=== PATIENT | male | born 1970 | race Caucasian/White ===

== ENCOUNTER 2017-02-20 16:59 | Emergency (ER) | payer OTHER ==
[~2017-02-20] VITALS: Ht 177.8 cm; Wt 127.0 kg
[~2017-02-20 16:59] MED LIST: BACLOFEN10 MG PO; BUSPIRONE HCL5 MG PO; IBUPROFEN600 MG PO; ZANTAC150 MG PO
[2017-02-20] MEDS ORDERED: CLONIDINE HCL0.1 MG PO (17:23)
[2017-02-20] MEDS ORDERED: OMEPRAZOLE20 M1 PO (17:23)
[2017-02-20] MEDS ORDERED: VITAMIN B-12100 MCG PO (17:24)
== END 2017-02-20 17:40 | disposition home or self-care (01) ==
LOC: ED 16:59
DX: L53.9 Erythematous condition, unspecified (principal); I51.7 Cardiomegaly; F41.9 Anxiety disorder, unspecified; Z88.2 Allergy status to sulfonamides
CPT/HCPCS: 96374; 99282; J1200

== ENCOUNTER 2017-12-04 19:33 | Emergency (ER) | payer OTHER ==
[~2017-12-04] VITALS: Ht 177.8 cm; Wt 127.0 kg
[~2017-12-04 19:33] MED LIST changes: +CLONIDINE HCL0.1 MG PO; +OMEPRAZOLE20 M1 PO; +VITAMIN B-12100 MCG PO
--- NOTE | 2017-12-05 15:57 | EKG ---
[facility] [address] [facility] [place] [address] Signed Normal sinus rhythm Normal ECG No previous ECGs available Confirmed by PATRIZIA OSBORNE MD ([id number]) on 12/05/2017 3:57:06 PM Electronically Signed By: PATRIZIA OSBORNE MD 12/05/17 1557 PATIENT NAME: KEN YARBROUGH Electrocardiogram DATE OF : [birth year] PHYSICIAN: PATRIZIA OSBORNE MD REPORT #: [id number] REPORT IS CONFIDENTIAL AND NOT TO BE RELEASED WITHOUT AUTHORIZATION
== END 2017-12-04 21:06 | disposition home or self-care (01) ==
LOC: ED 19:33
DX: J18.9 Pneumonia, unspecified organism (principal); Z88.2 Allergy status to sulfonamides; Z91.030 Bee allergy status; Z91.038 Other insect allergy status; Z79.899 Other long term (current) drug therapy
CPT/HCPCS: 71045; 80053; 84484; 85025; 85379; 93005; 93010; 96374; 99284; J1885

== ENCOUNTER 2017-12-07 11:07 | Emergency (ER) | payer OTHER ==
[~2017-12-07] VITALS: Ht 177.8 cm; Wt 122.5 kg
[2017-12-07] MEDS ORDERED: HYDROCODON-ACE1 EA14 PO (13:03)
[2017-12-07] MEDS ORDERED: ZITHROMAX250 MG PO (13:03)
== END 2017-12-07 13:21 | disposition home or self-care (01) ==
LOC: ED 11:07
DX: J18.9 Pneumonia, unspecified organism (principal); F41.9 Anxiety disorder, unspecified; Z88.2 Allergy status to sulfonamides; Z91.038 Other insect allergy status; Z91.030 Bee allergy status; Z79.899 Other long term (current) drug therapy
CPT/HCPCS: 71046; 99282

== ENCOUNTER 2019-08-15 15:14 | Emergency (ER) | payer OTHER ==
[~2019-08-15] VITALS: Ht 177.8 cm; Wt 131.5 kg
[~2019-08-15 15:14] MED LIST changes: +HYDROCODON-ACE1 EA14 PO; +ZITHROMAX250 MG PO
--- NOTE | 2019-08-15 23:42 | EKG ---
[facility] [address] [facility] [place], [place] [address] Signed Normal sinus rhythm Normal ECG When compared with ECG of 04-DEC-2017 19:38, No significant change was found Confirmed by NICKY YAO MD ([id number]) on 08/15/2019 11:42:26 PM Electronically Signed By: NICKY YAO MD 08/15/19 2342 PATIENT NAME: KEN YARBROUGH LANCE Electrocardiogram DATE OF : [birth year] PHYSICIAN: NICKY YAO MD REPORT #: [id number] REPORT IS CONFIDENTIAL AND NOT TO BE RELEASED WITHOUT AUTHORIZATION
== END 2019-08-15 17:51 | disposition home or self-care (01) ==
LOC: ED 15:14
DX: R07.89 Other chest pain (principal); F43.10 Post-traumatic stress disorder, unspecified; F41.9 Anxiety disorder, unspecified; F17.200 Nicotine dependence, unspecified, uncomplicated; Z88.2 Allergy status to sulfonamides; Z91.030 Bee allergy status; Z79.899 Other long term (current) drug therapy
CPT/HCPCS: 71046; 80053; 83735; 84484; 85025; 85379; 93005; 93010; 99285-25; 99406

== ENCOUNTER 2020-04-18 19:33 | Emergency (ER) | payer OTHER ==
[~2020-04-18] VITALS: Ht 157.5 cm; Wt 136.5 kg
[2020-04-18] MEDS ORDERED: BUSPIRONE HCL5 MG PO (20:35)
[2020-04-18] MEDS ORDERED: ZOFRAN4 MG PO (22:12)
--- NOTE | 2020-04-18 22:43 | EKG ---
[facility] [address] [place], [place] [address] Signed Sinus tachycardia Otherwise normal ECG When compared with ECG of 15-AUG-2019 15:20, No significant change was found Confirmed by PATRIZIA OSBORNE MD ([id number]) on 04/18/2020 10:43:22 PM Electronically Signed By: PATRIZIA OSBORNE MD 04/18/20 2243 PATIENT NAME: KEN YARBROUGH LANCE Electrocardiogram DATE OF : [birth year] PHYSICIAN: PATRIZIA OSBORNE MD REPORT #: [id number] REPORT IS CONFIDENTIAL AND NOT TO BE RELEASED WITHOUT AUTHORIZATION
--- NOTE | 2020-04-19 17:40 | PATH ---
[facility] [address] [place], [place] [address] Signed ORDERING PHYSICIAN: Luisa Harris MD PATIENT NAME: KEN YARBROUGH GENDER: M : 1970 SPECIMEN(S): No Source Given MOLECULAR PATHOLOGY RESULTS: SARS-CoV-2 Not Detected ADDITIONAL NOTES.: The Accord Fusion SARS-CoV-2 Assay is a multiplex real-time PCR (RT-PCR) in vitro diagnostic test intended for the qualitative detection of RNA from SARS-CoV-2 from individuals who meet COVID-19 clinical and/or epidemiological criteria. In general, SARS-CoV-2 RNA can be detected during the acute phase of infection. Positive results indicate the presence of SARS-CoV-2 RNA. Clinical correlation with patient history and other diagnostic information is necessary to determine patient infection status. Positive results do not rule out bacterial infection or co-infection with other viruses. Negative results do not preclude SARS-CoV-2 infection and should not be used as the sole basis for patient management decisions. Negative results must be combined with other clinical observations, patient history, and epidemiological information. The Accord Fusion SARS-CoV-2 Assay is not yet approved or cleared by the [place] FDA. When there are no FDA-approved or cleared tests available, and other criteria are met, FDA can make tests available under an emergency access mechanism called an Emergency Use Authorization (EUA). The EUA for this test is supported by the [place] of Health and Human Service's (HHS's) declaration that circumstances exist to justify the emergency use of in vitro diagnostics for the detection and/or diagnosis of the virus that causes COVID-19. This EUA will remain in effect for the duration of the COVID-19 declaration justifying emergency of IVDs, unless it is terminated or revoked by FDA, after which the test may no longer be used. The Accord Fusion SARS-CoV-2 Assay is for use only under EUA in US laboratories certified under the Clinical Laboratory Improvement Amendments of 1988 (CLIA) to perform high complexity tests. [facility] is certified under CLIA to perform high complexity PATIENT NAME: KEN YARBROUGH PATHOLOGY DATE OF : [birth year] REPORT #: [id number] PHYSICIAN: ANN-MARIE CRAFT PCP: OTHER PCP REPORT IS CONFIDENTIAL AND NOT TO BE RELEASED WITHOUT AUTHORIZATION [address] [address] Signed clinical laboratory testing. PERFORMING LABORATORY.: Molecular testing was performed by [facility] [address] [place], [place] [address] [address] (Maintenance Analyst: Cornel Gonzalez D.O.; CLIA#: [id number]) Diagnostician: System Interface Pathologist Electronically Signed 04/19/2020 Copies: ~ PATIENT NAME: KEN YARBROUGH PATHOLOGY DATE OF : [birth year] REPORT #: [id number] PHYSICIAN: ANN-MARIE CRAFT PCP: OTHER PCP REPORT IS CONFIDENTIAL AND NOT TO BE RELEASED WITHOUT AUTHORIZATION
== END 2020-04-18 22:46 | disposition home or self-care (01) ==
LOC: ED 19:33
DX: A08.4 Viral intestinal infection, unspecified (principal); Z20.828 Contact with and (suspected) exposure to other viral communicable diseases; F41.9 Anxiety disorder, unspecified; Z88.2 Allergy status to sulfonamides; Z91.030 Bee allergy status; Z79.899 Other long term (current) drug therapy
CPT/HCPCS: 71045; 80053; 81001; 83605; 85025; 93005; 93010; 96361; 96374; 99284-25; C9803; J2405; J7030

== ENCOUNTER 2020-07-08 09:48 | Emergency (ER) | payer OTHER ==
[~2020-07-08] VITALS: Ht 157.5 cm; Wt 136.5 kg
[~2020-07-08 09:48] MED LIST changes: +ZOFRAN4 MG PO
== END 2020-07-08 10:55 | disposition home or self-care (01) ==
LOC: ED 09:48
DX: M75.101 Unspecified rotator cuff tear or rupture of right shoulder, not specified as traumatic (principal); F43.10 Post-traumatic stress disorder, unspecified; F41.9 Anxiety disorder, unspecified; F17.200 Nicotine dependence, unspecified, uncomplicated; Z88.2 Allergy status to sulfonamides; Z91.030 Bee allergy status; Z79.899 Other long term (current) drug therapy
CPT/HCPCS: 73030; 99283-25

== ENCOUNTER 2020-11-22 06:10 | Day surgery (SDC) | payer OTHER ==
[~2020-11-22] VITALS: Ht 177.8 cm; Wt 131.8 kg
[2020-11-22] MEDS ORDERED: HYDROCODON-ACE1 EA10 PO (09:13)
[2020-11-22] MEDS ORDERED: DICLOFENAC SODI75 MG PO (09:13)
--- NOTE | 2020-11-22 09:20 | NUR ---
11/22/20 0920 Yelitza Paulino 09 PT. NEEDS AIRWAY SUPPORT, RN CHIN LIFT. PT. NONRESPONSIVE
--- NOTE | 2020-11-22 09:56 | NUR ---
PT ALERT, ORIENTED AND SUPPORTED BY HIS FRIEND JEROMY. PT ANSWEREDS WITH MOSTLY YES/NO ANSWERS. SEEMS CONFIDENT, ALL QUESTIONS ASKED ANSWERED. PT REQUESTED PRAYER. WILL FOLLOW NEEDED
--- NOTE | 2020-11-22 10:33 | NUR ---
LE 1017: PT ARRIVES TO UNIT VIA STRETCHER FROM PACU. BEDSIDE REPORT RECEIVED AND CARE ASSUMED BY THIS RN. PT DROWSY BUT RESPONDS TO VERBAL STIMULUS. VSS, CMS WNL. CRYO CUFF AND SCDS IN PLACE. PT DENIES NAUSEA, LOLA PO WELL. DRESSING C/D/I. REMAINS ON 2L NC VIA BIPAP. SON ATTENTIVE AT THE BEDSIDE. NO NEEDS VOICED AT THIS TIME. CALL LIGHT WITHIN REACH
--- NOTE | 2020-11-22 11:11 | OR ---
[facility] [address] [place], [place] [address] Signed DATE OF OPERATION: 11/22/2020 SURGEON: Siri Rizzo MD PREOPERATIVE DIAGNOSIS: Labral tear, right shoulder. POSTOPERATIVE DIAGNOSIS: Labral tear, right shoulder. PROCEDURE PERFORMED: Right shoulder arthroscopy with labral repair. OXYGEN THERAPIST: None. ANESTHESIA: General. BLOOD LOSS: Minimal. IMPLANTS: Three 1.8 FiberTak anchors were used. BRIEF HISTORY: Ken is a 50-year-old gentleman with pain in the shoulder. Nonoperative treatment was unsuccessful, improving his situation. MRI was consistent with the anterior-superior labral tear. Risks and benefits of operative treatment were discussed with him, and he elected to proceed. DESCRIPTION OF PROCEDURE: Once consent was obtained, he was taken to the operating room. After adequate anesthesia, he was placed on the operating room table in the beach chair position. All downside pressure points were well padded. The right shoulder was prepped and draped in a standard sterile fashion. Shoulder was injected with 15 mL of 0.25% Marcaine with epinephrine as was subacromial space. The standard posterior portal was made and the scope was introduced in the shoulder. ARTHROSCOPIC FINDINGS: Electronically Signed By: SIRI RIZZO MD 11/22/20 1111 PATIENT NAME: KEN YARBROUGH OPERATIVE REPORT DATE OF : [birth year] REPORT #: [id number] PHYSICIAN: SIRI RIZZO MD PCP: KAUSHIK CALLAWAY MD REPORT IS CONFIDENTIAL AND NOT TO BE RELEASED WITHOUT AUTHORIZATION [facility] [address] [facility] [place], [place] [address] Signed The shoulder showed a substantial synovitis throughout the anterior inferior aspect of the shoulder all the way around along the labrum. Not really involving the rotator cuff insertion. The biceps was intact. Glenohumeral surfaces showed grade 3 chondrosis to the inferior-anterior aspect of the glenoid on the humerus. The labrum was noted to be torn from the 4 o'clock position to about the 12 o'clock position. Some of the biceps anchor was involved. There was extensive fraying. DESCRIPTION OF OPERATION: Standard anterior and anterior superior portals were established. The glenoid rim was cleaned off using the shaver and a bur. We took it down to a good bony rim. Once this was accomplished, the labrum was mobilized anteriorly. The 1st anchor was placed at about the 3:30 position and using a device, we passed it through the labrum, brought back out the anterior superior cannula. The anchor was then threaded and tightened, and the labrum was brought up nice and tight. The 2nd anchor was placed midway and the 3rd anchor was placed just anterior to the biceps with excellent fixation. The three sutures were cut. The labrum was quite stable at the end of the procedure. The scope was withdrawn. Portals were closed with 3-0 nylon and dressed with Allevyn and OpSite. He tolerated the procedure well. All sponge, needle, and instrument counts were correct. Siri Rizzo MD BA/MODL /[id number] Copies: ~ Electronically Signed By: SIRI RIZZO MD 11/22/20 1111 PATIENT NAME: KEN YARBROUGH OPERATIVE REPORT DATE OF : [birth year] REPORT #: [id number] PHYSICIAN: SIRI RIZZO MD PCP: KAUSHIK CALLAWAY MD REPORT IS CONFIDENTIAL AND NOT TO BE RELEASED WITHOUT AUTHORIZATION
--- NOTE | 2020-11-22 11:26 | NUR ---
PT ALERT AND ORIENTED WHEN THIS RN ENTERS THE ROOM. VSS, CMS WNL. DRESSING C/D/I X3. CRYO CUFF AND SCDS REMAINS IN PLACE. CONTS TO DENY NAUSEA AND PAIN. REQUESTS TO WAIT ANOTHER HALF HOUR TO VOID. IV CONVERTED TO SL. NO NEEDS VOICED AT THIS TIME. CALL LIGHT WITHIN REACH
--- NOTE | 2020-11-22 12:08 | NUR ---
PT DANGLES AT THE BEDSIDE. DENIES DIZZINESS AND SOB. AMB TO BR WITH THIS RN STANDBY ASSIST. STEADY GAIT, LOLA WELL. SUCCESSFUL POSTOP VOID. PT BACK TO ROOM 12. DRESSES WITH ASSISTANCE. SLING ADJ. PREPARES FOR D/C
--- NOTE | 2020-11-22 12:41 | NUR ---
[facility] 1225: D/C INSTRUCTIONS PROVIDED AND DISCUSSED ORDERED. PT VOICES UNDERSTANDING AND DENIES QUESTIONS AND CONCERNS AT THIS TIME. SL D/C'D WITH CATH TIP INTACT AND PRESSURE APPLIED TO SITE. PT WHEELED OFF OF UNIT IN W/C BY THIS RN. TRANSFERS INTO VEHICLE INDEPENDENTLY. RESP EVEN AND UNLABORED. NO PHYSICAL S/S OF DISTRESS AT THIS TIME
== END 2020-11-22 12:25 | disposition home or self-care (01) ==
LOC: DS 06:10
PROVIDERS: ATTEND Specialist
PROC: 0MM14ZZ Reattachment of Right Shoulder Bursa and Ligament, Percutaneous Endoscopic Approach (ICD-10-PCS; principal; 2020-11-22 08:15)
DX: S43.431A Superior glenoid labrum lesion of right shoulder, initial encounter (principal)
CPT/HCPCS: J0330; J0690; J0735; J1100; J1885; J2001; J2250; J2405; J2704; J2765; J3010; J7121

== ENCOUNTER 2021-06-01 15:56 | Emergency (ER) | payer OTHER ==
[~2021-06-01] VITALS: Ht 177.8 cm; Wt 136.3 kg
[~2021-06-01 15:56] MED LIST changes: +DICLOFENAC SODI75 MG PO; +HYDROCODON-ACE1 EA10 PO
[2021-06-01] MEDS ORDERED: METHOCARBAMOL750 MG PO (17:10)
[2021-06-01] MEDS ORDERED: LIDODERM1 EACH TOP (17:12)
== END 2021-06-01 17:29 | disposition home or self-care (01) ==
LOC: ED 15:56
DX: M54.50 Low back pain, unspecified (principal); J45.909 Unspecified asthma, uncomplicated; F17.200 Nicotine dependence, unspecified, uncomplicated; Z88.2 Allergy status to sulfonamides; Z91.038 Other insect allergy status; Z79.899 Other long term (current) drug therapy
CPT/HCPCS: 99283; A9270

== ENCOUNTER 2022-07-20 19:25 | Emergency (ER) | payer OTHER ==
[~2022-07-20] VITALS: Ht 177.8 cm; Wt 168.0 kg
[~2022-07-20 19:25] MED LIST changes: +LIDODERM1 EACH TOP; +METHOCARBAMOL750 MG PO
--- OUTSIDE RECORDS SUMMARY | 2022-07-20 19:32 | XMS ---
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 Annette has no Care Guidelines for this patient. Care History Medical/Surgical 12/08/2017 [facility] scheduled patient next apt with PCP at the DC on 12/14/17 @ 1:00pm. - [facility] spoke with RN that was available at the DC at the PCP office and she stated she will get patient seen for a follow up visit within the next week. Care Recommendation: This patient has had 5 or more Emergency Department visits in the last 12 months. Patient requires education on the scope and purpose of the ED as an acute care provider not a Primary Care Provider and should not be utilized for chronic conditions. If patient returns to ED please contact [facility] at [phone]. These are guidelines and the provider should exercise clinical judgment when providing care E.D. VISIT COUNT (12 MO.) 1 [facility] 2 [facility]. TOTAL 3 NOTE: Visits indicate total known visits. ED/UCC VISIT TRACKING (12 MO.) 07/20/2022 19:26 [facility]I Montes TYPE: Emergency COMPLAINT: - CHEST PAIN 07/17/2022 18:41 [facility]EM[facility] [place] TYPE: Emergency COMPLAINT: - SOB 07/08/2022 13:10 [facility] TYPE: Emergency DIAGNOSES: - Chest pain, unspecified - CP - Chest Pain INPATIENT VISIT TRACKING (12 MO.) No inpatient visits to display in this time frame [email or web address]
[2022-07-20] MEDS ORDERED: PROZAC20 MG PO (19:43)
[2022-07-20] MEDS ORDERED: CARAFATE1 GM PO (22:47)
--- NOTE | 2022-07-23 19:22 | EKG ---
[facility] [address] [facility] [place] [address] Signed Normal sinus rhythm Minimal voltage criteria for LVH, may be normal variant ( R in aVL ) Borderline ECG When compared with ECG of 19-NOV-2020 11:32, No significant change was found Confirmed by PATRIZIA OSBORNE MD ([id number]) on 07/23/2022 7:22:17 PM Electronically Signed By: PATRIZIA OSBORNE MD 07/23/221921 PATIENT NAME: KEN YARBROUGH Electrocardiogram DATE OF : [birth year] PHYSICIAN: PATRIZIA OSBORNE MD REPORT #: [id number] REPORT IS CONFIDENTIAL AND NOT TO BE RELEASED WITHOUT AUTHORIZATION
--- NOTE | 2022-07-23 19:22 | EKG ---
[facility] [address] [facility] [place] [address] Signed Normal sinus rhythm Minimal voltage criteria for LVH, may be normal variant ( R in aVL ) Borderline ECG When compared with ECG of 20-JUL-2022 19:34, (Unconfirmed) No significant change was found Confirmed by PATRIZIA OSBORNE MD ([id number]) on 07/23/2022 7:22:23 PM Electronically Signed By: PATRIZIA OSBORNE MD 07/23/221921 PATIENT NAME: KEN YARBROUGH Electrocardiogram DATE OF : [birth year] PHYSICIAN: PATRIZIA OSBORNE MD REPORT #: [id number] REPORT IS CONFIDENTIAL AND NOT TO BE RELEASED WITHOUT AUTHORIZATION
== END 2022-07-20 22:54 | disposition home or self-care (01) ==
LOC: ED 19:25
DX: K21.9 Gastro-esophageal reflux disease without esophagitis (principal); I51.7 Cardiomegaly; J45.909 Unspecified asthma, uncomplicated; F17.200 Nicotine dependence, unspecified, uncomplicated; Z88.2 Allergy status to sulfonamides; Z91.030 Bee allergy status; Z79.899 Other long term (current) drug therapy
CPT/HCPCS: 36415; 71045; 80053; 83735; 84484; 85025; 85610; 93005; 93010; 96374; 99285-25; A9270

== ENCOUNTER 2023-08-17 18:39 | Emergency (ER) | payer OTHER ==
[~2023-08-17] VITALS: Ht 177.8 cm; Wt 136.0 kg
[~2023-08-17 18:39] MED LIST changes: +CARAFATE1 GM PO; +PROZAC20 MG PO
[2023-08-17 19:18] LABS: BASOPHILS 1.3 % (0-2); EOSINOPHILS 3.3 % (0-6); HEMATOCRIT 43.4 % (35.0-50.0); HEMOGLOBIN 14.7 g/dL (12.0-18.0); LYMPHOCYTES 8.3 % (24-44); MCH 28.9 (27-36); MCHC 33.8 g/dl (30-36); MCV 85.3 fl (81-99); MONOCYTES 12.3 % (0-12); NEUTROPHILS 74.8 % (39-80); PLATELET COUNT 198 K/uL (140-440); RBC 5.09 M/ul (4.3-5.7)
[2023-08-17 19:33] LABS: ALBUMIN 3.9 g/dL (3.4-5.0); ALBUMIN/GLOBULIN RATIO 1.08 (1.1-2.4); ANION GAP 12.8 (7-21); BILIRUBIN, TOTAL 0.6 ng/dL (0.2-1.0); BUN/CREATININE RATIO 8.26 (6.0-28.6); CALCIUM 8.4 mg/dL (8.5-10.1); CREATININE, SERUM 1.21 mg/dL (0.70-1.30); POTASSIUM 3.8 mmol/L (3.5-5.1); PROTEIN, TOTAL 7.5 g/dL (6.4-8.2)
[2023-08-17 19:36] LABS: LACTIC ACID, BLOOD 1.2 mmol/L (0.4-2.0)
[2023-08-17 19:54] LABS: INFLUENZA B NAA NEGATIVE (NEGATIVE); RESPIRATORY SYNCYTIAL VIR NAA NEGATIVE (NEGATIVE)
[2023-08-17] MEDS ORDERED: CYCLOBENZAPRINE10 MG PO (20:44)
[2023-08-17] MEDS ORDERED: ONDANSETRON ODT8 MG PO (20:44)
[2023-08-17 21:11] VITALS: BP 164/88
== END 2023-08-17 21:11 | disposition home or self-care (01) ==
LOC: ED 18:39
PROVIDERS: Family Medicine
DX: J10.1 Influenza due to other identified influenza virus with other respiratory manifestations (principal); F17.200 Nicotine dependence, unspecified, uncomplicated; Z91.030 Bee allergy status; Z88.2 Allergy status to sulfonamides; Z79.899 Other long term (current) drug therapy; Z11.52 Encounter for screening for COVID-19
CPT/HCPCS: 36415; 71045; 80053; 83605; 85025; 87502; A9270; C9803; J1885; J2405; J7121; U0002

== ENCOUNTER 2024-04-07 15:54 | Emergency (ER) | payer OTHER ==
[~2024-04-07] VITALS: Ht 177.8 cm; Wt 142.5 kg
[~2024-04-07 15:54] MED LIST changes: +CYCLOBENZAPRINE10 MG PO; +ONDANSETRON ODT8 MG PO
[2024-04-07] MEDS ORDERED: methylPREDNISolone SOD SUCC 125 MG/2 ML VIAL IV ONE (16:30)
[2024-04-07] MEDS ORDERED: diphenhydrAMINE HCL 50 MG/ML VIAL IV ONE (16:30)
[2024-04-07] MEDS ORDERED: KETOROLAC TROMETHAMINE 30 MG/ML VIAL IV ONE (16:30)
[2024-04-07] MEDS ORDERED: KETOROLAC TROME10 MG PO (18:33)
[2024-04-07] MEDS ORDERED: PREDNISONE20 MG PO (18:33)
[2024-04-07] MEDS ORDERED: EPIPEN 2-P0.3 MG/0.3 IM (18:33)
[2024-04-07 18:42] VITALS: BP 145/88
== END 2024-04-07 18:42 | disposition home or self-care (01) ==
LOC: ED 15:54
DX: T63.441A Toxic effect of venom of bees, accidental (unintentional), initial encounter (principal); M79.89 Other specified soft tissue disorders; J45.909 Unspecified asthma, uncomplicated; F17.200 Nicotine dependence, unspecified, uncomplicated; Z88.2 Allergy status to sulfonamides; Z91.030 Bee allergy status; Z79.899 Other long term (current) drug therapy
CPT/HCPCS: 96374; 96375; 99282-25; J1200; J1885; J2919

== ENCOUNTER 2024-10-22 11:51 | Emergency (ER) | payer OTHER ==
[~2024-10-22] VITALS: Ht 177.8 cm; Wt 143.8 kg
[~2024-10-22 11:51] MED LIST changes: +EPIPEN 2-P0.3 MG/0.3 IM; +KETOROLAC TROME10 MG PO; +PREDNISONE20 MG PO
[2024-10-22] MEDS ORDERED: ALBUTEROL/IPRATROPIUM 3 ML NEB ONE (11:54)
[2024-10-22] MEDS ORDERED: DEXAMETHASONE SOD PHOS 10 MG/ML VIAL IV ONE (12:00)
[2024-10-22] MEDS ORDERED: ALBUTEROL/IPRATROPIUM 3 ML NEB INH ONE (12:00)
[2024-10-22 12:10] LABS: BASOPHILS 0.7 % (0-2); EOSINOPHILS 5.4 % (0-6); HEMATOCRIT 43.7 % (35.0-50.0); HEMOGLOBIN 15.1 g/dL (12.0-18.0); LYMPHOCYTES 17.4 % (24-44); MCH 29.2 (27-36); MCHC 34.5 g/dl (30-36); MCV 84.6 fl (81-99); MONOCYTES 8.9 % (0-12); NEUTROPHILS 67.6 % (39-80); PLATELET COUNT 208 K/uL (140-440); RBC 5.17 M/ul (4.3-5.7); RDW 14.2 (10.5-15.0)
[2024-10-22 12:30] LABS: ALBUMIN 3.7 g/dL (3.4-5.0); ALBUMIN/GLOBULIN RATIO 1.19 (1.1-2.4); BILIRUBIN, TOTAL 0.5 mg/dL (0.2-1.0); CALCIUM 9.1 mg/dL (8.5-10.1); PROTEIN, TOTAL 6.8 g/dL (6.4-8.2)
[2024-10-22] MEDS ORDERED: PREDNISONE20 MG PO (14:29)
[2024-10-22] MEDS ORDERED: DOXYCYCLINE HY100 MG PO (14:29)
[2024-10-22 14:35] VITALS: BP 135/70
[2024-10-23 03:49] LABS: PROCALCITONIN 0.04 ng/mL (())
== END 2024-10-22 14:35 | disposition home or self-care (01) ==
LOC: ED 11:51
PROVIDERS: Emergency Medicine
DX: J40 Bronchitis, not specified as acute or chronic (principal); F17.200 Nicotine dependence, unspecified, uncomplicated; Z88.2 Allergy status to sulfonamides; Z91.030 Bee allergy status; Z79.52 Long term (current) use of systemic steroids; Z79.899 Other long term (current) drug therapy
CPT/HCPCS: 36415; 71045; 80053; 84484; 85025; 85379; 94640; 96374; 99285-25; J1100

== ENCOUNTER 2025-04-18 22:51 | Emergency (ER) | payer OTHER ==
[~2025-04-18] VITALS: Ht 177.8 cm; Wt 133.2 kg
[~2025-04-18 22:51] MED LIST changes: +DOXYCYCLINE HY100 MG PO
[2025-04-18 23:20] LABS: BASOPHILS 1.1 % (0.2-1.2); EOSINOPHILS 2.0 % (0.8-7.0); LYMPHOCYTES 9.7 % (21.8-53.1); MCH 29.0 PG (25.7-32.2); MCHC 33.6 g/dL (32.3-36.5); MCV 86.2 fL (79.0-92.2); MONOCYTES 8.2 % (5.3-12.2); NEUTROPHILS 78.5 % (34.0-67.9); RBC 5.56 M/uL (4.63-6.08)
[2025-04-18 23:30] LABS: INR 1.03 (0.80-1.30); PROTIME 12.8 Sec (11.2-14.2)
[2025-04-18 23:38] LABS: ALT (SGPT) 36.0 U/L (14-59); AST (SGOT) 22.0 U/L (15-37); GLOMERULAR FILTRATION RATE,EST 81.0 mL/min (>60); PROTEIN, TOTAL 7.5 g/dL (6.4-8.2); UREA NITROGEN 13.0 mg/dL (7-18)
[2025-04-19] MEDS ORDERED: MECLIZINE HCL25 MG PO (00:46)
[2025-04-19] MEDS ORDERED: MECLIZINE HCL 25 MG TAB PO ONE (01:00)
[2025-04-19] MEDS ORDERED: ONDANSETRON 4 MG HOME.PACK SL ONE (01:00)
[2025-04-19 01:04] VITALS: BP 134/87
--- NOTE | 2025-04-19 18:26 | EKG ---
[facility] [address] [facility] [place] [address] Signed Normal sinus rhythm Normal ECG When compared with ECG of 20-JUL-2022 21:51, No significant change was found Confirmed by Cordell Carranza DO ([id number]) on 04/19/2025 6:26:19 PM Electronically Signed By: CORDELL CARRANZA DO 04/19/25 1826 PATIENT NAME: KEN YARBROUGH LANCE Electrocardiogram DATE OF : [birth year] PHYSICIAN: CORDELL CARRANZA DO REPORT #: [id number] REPORT IS CONFIDENTIAL AND NOT TO BE RELEASED WITHOUT AUTHORIZATION
== END 2025-04-19 01:06 | disposition home or self-care (01) ==
LOC: ED 22:51
PROVIDERS: Family Medicine
DX: R11.10 Vomiting, unspecified (principal); R42 Dizziness and giddiness; F17.200 Nicotine dependence, unspecified, uncomplicated; Z88.2 Allergy status to sulfonamides; Z91.030 Bee allergy status; Z91.038 Other insect allergy status; Z79.899 Other long term (current) drug therapy
CPT/HCPCS: 36415; 70450; 70496; 70498; 71045; 80053; 83735; 84484; 85025; 85379; 85610; 93005; 93010; 96374; 99284-25; A9270; J2405; Q9967